=== PATIENT | male | born 1935 | race Caucasian/White ===

== ENCOUNTER 2016-04-04 07:01 | Day surgery (SDC) | payer OTHER ==
[2016-03-25 08:26] VITALS: BMI 16.0
--- NOTE | 2016-03-25 09:15 | PAT Medication Instructions ---
Service Date Mar 25, 2016. Current Home Medication List Ascorbic Acid (Ascorbic Acid), 1 TAB PO QPM Aspirin (Aspirin Chewable), 81 MG PO QAM Atenolol (Tenormin), 25 MG PO QAM Biotin (Biotin), 1 TAB PO QPM Cinnamon (Cinnamon), 1 CAP PO QPM PRN for PRN Coenzyme Q10 (Ubidecarenone) (Coq-10), 1 CAP PO QPM Cyanocobalamin (Vitamin B12 500MCG), 500 MCG PO QPM Ferrous Sulfate (Kp Ferrous Sulfate), 1 TAB PO QPM Fish Oil (Blackshear-3), 1 CAP PO QPM Lisinopril (Zestril), 20 MG PO QPM Nitroglycerin (Nitrostat), 0.4 MG UT PRN PRN for Chest Pain Omeprazole (Prilosec), 20 MG PO QAM Probiotic Product (Probiotic), 1 TAB PO QPM Pyridoxine (Vitamin B6), 100 MG PO QPM Ranitidine (Zantac), 150 MG PO QAM Selenium (Selenicaps-200), 1 CAP PO QPM Simvastatin (Zocor), 5 MG PO QPM Sucralfate (Carafate), 1 GM PO BID Tamsulosin Hcl (Flomax), 1 CAP PO QPM Vitamin E (E-400), 400 UNITS PO QPM Medication Instructions For Your Scheduled Surgery - Check with surgeon/cardiology for instructions: Aspirin (Aspirin Chewable), 81 MG PO QAM - Hold the following medications starting 03/26/16: Cinnamon (Cinnamon), 1 CAP PO QPM PRN for PRN Coenzyme Q10 (Ubidecarenone) (Coq-10), 1 CAP PO QPM Fish Oil (Blackshear-3), 1 CAP PO QPM Vitamin E (E-400), 400 UNITS PO QPM - Hold the following medications the morning of surgery: Ranitidine (Zantac), 150 MG PO QAM Pyridoxine (Vitamin B6), 100 MG PO QPM Sucralfate (Carafate), 1 GM PO BID - Take the following medications the morning of surgery with a sip of water: Atenolol (Tenormin), 25 MG PO QAM Omeprazole (Prilosec), 20 MG PO QAM Nitroglycerin (Nitrostat), 0.4 MG UT PRN PRN for Chest Pain (if needed) - Hold the following medications as scheduled the night before surgery: Lisinopril (Zestril), 20 MG PO QPM - Take the following medications as scheduled the night before surgery: Ascorbic Acid (Ascorbic Acid), 1 TAB PO QPM Pyridoxine (Vitamin B6), 100 MG PO QPM Sucralfate (Carafate), 1 GM PO BID Tamsulosin Hcl (Flomax), 1 CAP PO QPM Simvastatin (Zocor), 5 MG PO QPM Selenium (Selenicaps-200), 1 CAP PO QPM Probiotic Product (Probiotic), 1 TAB PO QPM Nitroglycerin (Nitrostat), 0.4 MG UT PRN PRN for Chest Pain (if needed) Cyanocobalamin (Vitamin B12 500MCG), 500 MCG PO QPM Ferrous Sulfate (Kp Ferrous Sulfate), 1 TAB PO QPM Biotin (Biotin), 1 TAB PO QPM If you have any questions please call us at [phone] (Duyen Moreno PA-C) or [phone] or [phone]
[2016-03-25 09:38] LABS: BASO % 0.3 %; BASO ABS # 0.02 K/uL (0-0.2); COMPLETE YES; EOS % 0.4 %; HEMATOCRIT 36.9 % (42-52); IG% 0.3 %; LYMPH % 10.2 %; LYMPH ABS # 0.74 K/uL (1.2-3.4); MEAN CELL VOLUME 87.4 fL (80-100); MEAN CORPUSCULAR HEMOGLOBIN 29.4 pg (25-34); MEAN CORPUSCULAR HGB CONC 33.6 g/dl (32-36); MEAN PLATELET VOLUME 9.1 fL (7.4-10.4); MONO % 9.7 %; NEUT % 79.1 %; PLATELET COUNT 175 K/uL (130-400); RED BLOOD COUNT 4.22 M/uL (4.7-6.1); WHITE BLOOD COUNT 7.25 K/uL (4.8-10.8)
[2016-03-25 10:08] LABS: BUN/CREATININE RATIO 30.5 (10-20); CALCIUM 8.6 mg/dl (8.5-10.1); CREATININE 1.1 mg/dl (0.60-1.40); POTASSIUM 3.6 mmol/L (3.5-5.1)
[~2016-04-04] VITALS: Ht 175.3 cm; Wt 51.5 kg
[~2016-04-04 07:01] MED LIST: ASCO100061 PO; ASPCH81X PO; ATEN50TA8 PO; BIOT1TAB5 PO; CINN1CAP2 PO; CLINDAMYCIN 600 MG/54 ML D5W IV SCH; COEN50CA9 PO; CYAN500T13 PO; FERR1TAB13 PO; LACTATED RINGER'S 1000ML 1,000 ML IV SCH; LACTATED RINGER'S 1000ML 500 ML IV ONE; LISI-725 PO; MISCCAP80 PO; NTRGSL/4 UT; OMEG10007 PO; OMEP20CA59 PO; PYRI100T4 PO; SELE200C4 PO; SIMV5TAB2 PO; SUCR1TAB29 PO; TAMS0.4C38 PO; VITACAP37 PO; ZNTT/150 PO
[2016-04-04 07:35] VITALS: BP 187/83; PULSE 59; TEMP 36.6; O2SAT 97; Ht 175.3 cm; Wt 51.5 kg
[2016-04-04] MEDS ORDERED: MIDAZOLAM HCL 1 MG/ML 2ML VIAL ONE (07:58)
[2016-04-04] MEDS ORDERED: FENTANYL CITRATE INJ 50 MCG/1 ML 2 ML VIAL ONE ×2 (07:58)
[2016-04-04] MEDS ORDERED: EpHEDrine SULFATE INJ 50 MG/ML AMP IV PRN (08:30)
[2016-04-04] MEDS ORDERED: ONDANSETRON INJ 2 MG/ML 2 ML VIAL IV PRN ×2 (08:30→10:15)
[2016-04-04] MEDS ORDERED: FENTANYL CITRATE INJ 50 MCG/1 ML 2 ML VIAL IV PRN (08:30)
[2016-04-04] MEDS ORDERED: ATROPINE SULFATE 0.1 MG/ML 5ML SYR IV PRN (08:30)
--- NOTE | 2016-04-04 08:31 | History & Physical Bridge Note ---
H&P Re-Evaluation Bridge Note: I have examined the patient, reviewed the History & Physical and in the interval since the performance of the History & Physical I have noted the following changes of clinical significance: No changes noted
[2016-04-04] MEDS ORDERED: EpHEDrine SULFATE INJ 50 MG/ML AMP ONE (09:01)
[2016-04-04] MEDS ORDERED: NEOSTIGMINE METHYLSULFATE 5 MG/5 ML SYR ONE (09:01)
[2016-04-04] MEDS ORDERED: DEXAMETHASONE SOD INJ 4 MG/ML VIAL ONE (09:01)
[2016-04-04] MEDS ORDERED: LIDOCAINE HCL 2% 2 ML VIAL (20MG/ML) ONE (09:01)
[2016-04-04] MEDS ORDERED: ONDANSETRON INJ 2 MG/ML 2 ML VIAL ONE (09:01)
[2016-04-04] MEDS ORDERED: LARYING-O-JET KIT (LTA) EXT ONE ×2 (09:01)
[2016-04-04] MEDS ORDERED: PROPOFOL IV EMULSION 10 MG/ML 20 ML VIAL IV ONE (09:01)
[2016-04-04] MEDS ORDERED: GLYCOPYRROLATE INJ 0.2 MG/ML VIAL ONE (09:01)
[2016-04-04] MEDS ORDERED: BUPIVACAINE 0.5 % 5 MG/1 ML MPF 30ML VIAL INJ ONE (09:46)
[2016-04-04] MEDS ORDERED: SODIUM CHLORIDE 0.9% 1000ML 1,000 ML IV SCH (10:02)
--- NOTE | 2016-04-04 10:02 | [facility] Post Operative Brief Note ---
Immediate Operative Summary Operative Date Apr 04, 2016. Pre-Operative Diagnosis Gallbladder polyps Post-Operative Diagnosis gallbladder polyps Procedure(s) Performed laproscopic cholecystectomy Surgeon Dr. Lim In[employer] Surgeon(s) None Estimated Blood Loss 5 ml Specimens A. gallbladder Drains None Anesthesia General Complication(s) None Disposition Recovery Room / PACU
--- NOTE | 2016-04-04 10:06 | Discharge Instructions ---
Discharge Instructions Admission Reason for Admission: Gallbladder Polyp Discharge Discharge Diagnosis / Problem: Same Discharge Goals Goal(s): Improve disease control Activity Recommendations Activity Limitations: per Instructions/Follow-up section Lifting Limitations: no more than 10 pounds Shower/Bathe: tomorrow (Shower only) . Instructions / Follow-Up Instructions / Follow-Up Post-Surgical ~ Discharge Instructions Activity Recommendations: - lifting limitation: (10 pounds for 2 weeks), - exercise/sex/sports limit: (nonstrenuous for 2 weeks), - driving or machine use limit: (none for 1 week), - Shower/bathe limit: (may shower beginning tomorrow) Diet: - Resume previous diet SPECIAL CARE INSTRUCTIONS: - May shower in 24 hours. Let water run over area and pat dry. - Leave steri strips on for one week. - Call the surgeon's office with any questions or concerns - - (ex. temperature higher than 101 degrees F, excessive bleeding or pain). MEDICATIONS: - Resume previous medications unless instructed otherwise by your surgeon. - Ibuprofen 600 mg every 6 hours with food - Percocet 1 every 4 hours, as needed for pain FOLLOW UP VISIT: - If not already scheduled, please call the office to schedule a two week follow-up appointment. Office number Current Hospital Diet Patient's current hospital diet: Discharge Diet Recommended Diet: Regular Diet Procedures Procedures Performed: laproscopic cholecystectomy Pending Studies Studies pending at discharge: no Medical Emergencies . Who to Call and When: Medical Emergencies: If at any time you feel your situation is an emergency, please call 911 immediately. . Non-Emergent Contact Non-Emergency issues call your: Primary Care Provider, Surgeon Call Non-Emergent contact if: your pain is worsening, wound has increased redness, wound has increased pain . "Provider Documentation" section prepared by Mj Lim. VTE Core Measure Inpt VTE Proph given/why not?: Treatment not indicated
[2016-04-04] MEDS ORDERED: MoRPHine SULFATE 4 MG/ML 1 ML CARP\\VIAL IV PRN (10:15)
[2016-04-04] MEDS ORDERED: OXYCODONE/ACETAMINOPHEN 5-325 TAB PO PRN (10:15)
[2016-04-04 10:35] VITALS: BP 165/73; PULSE 58; TEMP 36.4; O2SAT 100
--- NOTE | 2016-04-04 11:02 | OPERATIVE REPORT ---
DATE OF OPERATION: 04/04/2016 PREOPERATIVE DIAGNOSIS: Gallbladder polyps. POSTOPERATIVE DIAGNOSIS: Same. PROCEDURE: Laparoscopic cholecystectomy. SURGEON: Dr. Lim. FINDINGS: The gallbladder was not dilated. The cystic duct was not dilated. The liver appeared of normal size and contour but was pale in color. The visible bowel appeared normal. There were no adhesions to the gallbladder. TECHNIQUE: The patient was given a general anesthetic, and the area was prepped and draped in usual sterile fashion. Transverse incision was made below the umbilicus, carried down through the subcutaneous tissue to the fascia which was grasped with 2 Sendy clamps and incised between. The peritoneum was identified, incised, and the introducer was placed bluntly. The abdomen was then insufflated to a pressure of 15 mmHg with carbon dioxide. The upper midline, midclavicular and anterior axillary introducers were placed under direct vision through small skin incisions. Traction was placed on the gallbladder and the peritoneum was opened on the lateral side, and then working from lateral to medial, the triangle of Calot was opened and the peritoneum was peeled toward the common bile duct. The infundibulum was dissected away from the liver on lateral and medial sides, allowing for better mobilization. I was then able to peel additional thickened lymphatics and some connective tissue inferiorly. There was a vessel on the lateral side behind the cystic duct that was isolated, clipped and divided, allowing for even better mobility. There was some additional either a large lymphatic or a branch of the artery on the medial side of the cystic duct, that was away and clamped proximally, distally and divided. That allowed me to confirm the location of the cystic duct--gallbladder junction. Three clips were placed on the proximal cystic duct, 1 near the gallbladder junction, and it was divided. The gallbladder was then peeled off the liver bed. There was 1 additional either vascular structure that was small or a lymphatic that was clipped and divided during that dissection. The gallbladder was placed into an Endobag and brought out through the upper midline incision. That introducer was replaced. The liver edge was elevated. There was 1 small area of oozing from the gallbladder bed of the liver that was easily controlled with cautery. The subdiaphragmatic and subhepatic spaces were irrigated, the irrigation was removed. The gallbladder bed of the liver was again inspected and there was no bleeding. The gas was allowed to escape and the introducers were removed. The fascia of the umbilical and upper midline introducer sites was closed with interrupted 0 Vicryl and the skin of all the incisions was closed with 4-0 Monocryl in either an interrupted or running subcuticular fashion. Skin was anesthetized with 0.5% Marcaine. The skin was cleansed, dried, benzoin placed, Steri-Strips applied. The estimated blood loss was 5 mL. Sponge, needle and instrument counts were correct prior to closure. The patient tolerated the surgical procedure and was transferred to recovery. I attest to the content of the Intraoperative Record and any orders documented therein. Any exceptio ns are noted below.
[2016-04-04 11:05] VITALS: BP 137/74; PULSE 58; O2SAT 98
[2016-04-04 11:35] VITALS: BP 161/86; PULSE 56; TEMP 36.6; O2SAT 99
--- NOTE | 2016-04-04 13:16 | Anesthesiology Progress Note ---
Anesthesia Post Op Note Date & Time Apr 04, 2016 at 13:15 Vital Signs Vital Signs Past 12 Hours Date Time Temp Pulse Resp B/P Pulse Ox O2 Delivery O2 Flow Rate FiO2 04/04/16 11:35 36.6 56 18 161/86 99 Room Air 04/04/16 11:05 58 20 137/74 98 Room Air 04/04/16 10:35 36.4 58 20 165/73 100 Room Air 04/04/16 10:25 36.2 52 18 155/66 100 Nasal Cannula 2 04/04/16 10:15 52 18 160/71 100 Mask 10 04/04/16 10:05 57 16 162/77 100 Mask 10 04/04/16 09:55 59 16 146/68 100 Mask 10 04/04/16 09:53 36.0 62 16 154/70 100 Mask 10 04/04/16 07:35 36.6 59 22 187/83 97 Room Air Notes Mental Status: alert / awake / arousable, participated in evaluation Pt Amnestic to Procedure: Yes Nausea / Vomiting: adequately controlled Pain: adequately controlled Airway Patency, RR, SpO2: stable & adequate BP & HR: stable & adequate Hydration State: stable & adequate Anesthetic Complications: no major complications apparent
== END 2016-04-04 12:08 | disposition home or self-care (01) ==
LOC: C.ACU 07:01
PROVIDERS: ATTEND Surgery
DX: K81.1 Chronic cholecystitis (principal); J44.9 Chronic obstructive pulmonary disease, unspecified; Z79.899 Other long term (current) drug therapy; F17.220 Nicotine dependence, chewing tobacco, uncomplicated

== ENCOUNTER → 2017-02-28 | Day surgery (SDC) | payer OTHER ==
[2017-02-23 13:26] VITALS: Ht 174 cm; Wt 51.4 kg
[~2017-02-28] VITALS: Ht 174 cm; Wt 51.4 kg
[~2017-02-28] MED LIST changes: -CINN1CAP2 PO; -CLINDAMYCIN 600 MG/54 ML D5W IV SCH; -FERR1TAB13 PO; +FERR50TA3; -LACTATED RINGER'S 1000ML 1,000 ML IV SCH; -LACTATED RINGER'S 1000ML 500 ML IV ONE; +LIDOCAINE HCL 2% 2 ML VIAL (20MG/ML) ONE; +MIDAZOLAM HCL 1 MG/ML 2ML VIAL ONE; -OMEG10007 PO; +ONDANSETRON INJ 2 MG/ML 2 ML VIAL IV PRN; +ONDANSETRON INJ 2 MG/ML 2 ML VIAL ONE; +PRED20TA PO; +PROPOFOL IV EMULSION 10 MG/ML 20 ML VIAL IV ONE; -SIMV5TAB2 PO; +SULF800T23 PO
--- NOTE | 2017-02-28 11:05 | Endo History and Physical ---
History & Physical Date of Service: Feb 28, 2017. Chief Complaint: Difficulty swallowing Referring Physician: History of Present Illness 81-year-old male with a history of reflux presenting for difficulty swallowing worsening over the past 3-4 months. 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 Past Surgical History Hx Cardiac Surgery: Yes (HEART CATH, STENT X1) Hx Internal Defibrillator: No Hx Pacemaker: No Hx Abdominal Surgery: Yes (OMAR) Hx of Implantable Prosthesis: No Hx Post-Op Nausea and Vomiting: No Hx Cancer Surgery: No Hx Thoracic Surgery: No Hx Orthopedic: Yes (LUMBAR DISCECTOMY, CERVICAL DISCECTOMY (FULL ROM)) Hx Urinary Tract Surgery: No Family History None Social History Smoking Status: Former Smoker Hx Substance Use: No Hx Alcohol Use: No Allergies Coded Allergies: Penicillins (Verified Allergy, Intermediate, hives, 02/23/17) Solifenacin (Verified Allergy, Unknown, NOSEBLEEDS, 02/23/17) Current Medications Reported Home Medications Medications Dose Route/Sig Max Daily Dose Days Date Category Dose Instructions Carafate (Sucralfate) 1 Gm Tab 1 Gm PO BID 02/23/17 Reported Bactrim Ds 800MG/160MG (Trimethoprim/Sulfamethoxazole) Tab 1 Tab PO BID 02/23/17 Reported WILL COMPLETE 02-28-17 Prednisone 20 Mg Tab 0 PO DAILY 02/23/17 Reported 3 TABS DAILY FOR DAYS, THEN 2 TABS DAILY FOR DAYS, THEN 1 TAB DAILY FOR DAYS. Zantac (Ranitidine HCl) 150 Mg Tab 150 Mg PO BID 02/23/17 Reported Probiotic (Probiotic Product) 1 Cap Cap 1 Tab PO QPM 03/25/16 Reported E-400 (Vitamin E) 400 Unit Cap 400 Units PO QPM 03/25/16 Reported Vitamin B12 500MCG (Cyanocobalamin) 500 Mcg Tab 500 Mcg PO QPM 03/25/16 Reported Ascorbic Acid 1,000 Mg Tab 1 Tab PO QPM 12/31/15 Reported Nitrostat (Nitroglycerin) 0.4 Mg Tab 0.4 Mg UT PRN PRN 12/31/15 Reported Vitamin B6 (Pyridoxine HCl) 100 Mg Tab 100 Mg PO QPM 12/31/15 Reported Biotin 1,000 Mcg Tab 1 Tab PO QPM 12/31/15 Reported Selenicaps-200 (Selenium) 200 Mcg Cap 1 Cap PO QPM 12/31/15 Reported Coq-10 (Coenzyme Q10 (Ubidecarenone)) 50 Mg Cap 1 Cap PO QPM 12/31/15 Reported Zestril (Lisinopril) 20 Mg Tab 20 Mg PO QPM 12/31/15 Reported Flomax (Tamsulosin Hcl) 0.4 Mg Cap 1 Cap PO QPM 12/31/15 Reported Tenormin (Atenolol) 50 Mg Tab 50 Mg PO QAM 12/31/15 Reported Prilosec (Omeprazole) 20 Mg Capcr 20 Mg PO QAM 12/31/15 Reported Aspirin Chewable (Aspirin) 81 Mg Chew 81 Mg PO QAM 12/31/15 Reported Vital Signs Weight (Kilograms): 51.36 Height (Feet): 5 Height (Inches): 8.5 Physical Exam General Appearance: no apparent distress Respiratory/Chest: Auscultation: deminished air movement Cardiovascular: Heart Auscultation: II/ GOPI Abdomen: Inspection & Palpation: soft Assessment and Plan Upper endoscopy for evaluation of difficulty swallowing. We've discussed the risks to include bleeding, infection, perforation and pain.
--- NOTE | 2017-02-28 12:37 | Discharge Instructions ---
Endoscopy Patient Instructions Date / Procedure(s) Performed Feb 28, 2017. EGD Allergy Information Coded Allergies: Penicillins (Verified Allergy, Intermediate, hives, 02/23/17) Solifenacin (Verified Allergy, Unknown, NOSEBLEEDS, 02/23/17) Discharge Date / Findings Feb 28, 2017. No duodenal polyps seen today Diffuse gastritis Medication Instructions Restart Stopped Medication(s): Reported Home Medications Medications Dose Route/Sig Max Daily Dose Days Date Category Dose Instructions Iron (Ferrous Sulfate) (Ferrous Sulfate) 50 Mg Tab 65 Mg 02/28/17 Reported Carafate (Sucralfate) 1 Gm Tab 1 Gm PO BID 02/23/17 Reported Bactrim Ds 800MG/160MG (Trimethoprim/Sulfamethoxazole) Tab 1 Tab PO BID 02/23/17 Reported WILL COMPLETE 02-28-17 Prednisone 20 Mg Tab 0 PO DAILY 02/23/17 Reported 3 TABS DAILY FOR DAYS, THEN 2 TABS DAILY FOR DAYS, THEN 1 TAB DAILY FOR DAYS. Zantac (Ranitidine HCl) 150 Mg Tab 150 Mg PO BID 02/23/17 Reported Probiotic (Probiotic Product) 1 Cap Cap 1 Tab PO QPM 03/25/16 Reported E-400 (Vitamin E) 400 Unit Cap 400 Units PO QPM 03/25/16 Reported Vitamin B12 500MCG (Cyanocobalamin) 500 Mcg Tab 500 Mcg PO QPM 03/25/16 Reported Ascorbic Acid 1,000 Mg Tab 1 Tab PO QPM 12/31/15 Reported Nitrostat (Nitroglycerin) 0.4 Mg Tab 0.4 Mg UT PRN PRN 12/31/15 Reported Vitamin B6 (Pyridoxine HCl) 100 Mg Tab 100 Mg PO QPM 12/31/15 Reported Biotin 1,000 Mcg Tab 1 Tab PO QPM 12/31/15 Reported Selenicaps-200 (Selenium) 200 Mcg Cap 1 Cap PO QPM 12/31/15 Reported Coq-10 (Coenzyme Q10 (Ubidecarenone)) 50 Mg Cap 1 Cap PO QPM 12/31/15 Reported Zestril (Lisinopril) 20 Mg Tab 20 Mg PO QPM 12/31/15 Reported Flomax (Tamsulosin Hcl) 0.4 Mg Cap 1 Cap PO QPM 12/31/15 Reported Tenormin (Atenolol) 50 Mg Tab 50 Mg PO QAM 12/31/15 Reported Prilosec (Omeprazole) 20 Mg Capcr 20 Mg PO QAM 12/31/15 Reported Aspirin Chewable (Aspirin) 81 Mg Chew 81 Mg PO QAM 12/31/15 Reported Provider Instructions Activity Restrictions - No exercising or heavy lifting for 24 hours. - Do not drink alcohol the day of the procedure. - Do not drive a car or operate machinery until the day after the procedure. - Do not make any important decisions or sign important papers in 24 hours after the procedure. Following Day: - Return to full activity which may include returning to work/school. Diet Start your diet with liquids and light foods (jello, soup, juice, toast). Then eat your usual diet if not nauseated. Treatment For Common After Affects For mild abdominal pain, bloating, or excessive gas: - Rest - Eat lightly - Lie on right side Follow-Up Information Follow-up with Dr. Elizabeth Sheth as scheduled Await pathology results Surveillance upper endoscopy in 1 year for follow-up of the duodenal polyps Anesthesia Information What You Should Know You have had a procedure that required some medicine to reduce anxiety and discomfort. This treatment is called moderate sedation. After receiving the treatment, you may be sleepy, but you will be able to breathe on your own. The effects of the treatment may last for several hours. Follow these instructions along with Activity/Diet recommendations noted above: * Do NOT do anything where dizziness or clumsiness would be dangerous. * Rest quietly at home today, then you can be up and about tomorrow. * Have a responsible person stay with you the rest of today. * You may have had an I.V. today. If so, you may take the dressing off later today. Recommendations Call your doctor if: * Trouble breathing * Continuous vomiting for more than 24 hours * Temperature above 101 degrees * Severe abdominal pain or bloating * Pain not relieved by pain medicine ordered * There is increased drainage or redness from any incision * A large amount of rectal bleeding greater than 2-3 tablespoons. (If you had a polyp/s removed or have hemorrhoids, a small amount of blood - from the rectum is to be expected.) * You have any unanswered questions or concerns. IN THE EVENT OF A SERIOUS EMERGENCY, GO TO THE NEAREST EMERGENCY ROOM Your discharge instructions were prepared by provider Cl Barnes. Patient Instructions Signature Page Adriano Gay Patient (or Guardian) Signature/Date: I have read and understand the instructions given to me by my caregivers. Caregiver/RN/Doctor Signature/Date: The above-named patient and/or guardian has received patient instructions on this date. + Original Patient Signature Page (only) stays with chart. Please make copy for patient.
--- NOTE | 2017-02-28 12:40 | GI REPORT ---
Procedure Date: 02/28/2017 11:19 AM Procedure: Upper GI endoscopy Indications: Dysphagia, Follow-up of benign duodenal tumor Medicines: Monitored Anesthesia Care Complications: No immediate complications. Estimated blood loss: Minimal. Estimated Blood Loss: Estimated blood loss was minimal. Procedure: Pre-Anesthesia Assessment: - Prior to the procedure, a History and Physical was performed, and patient medications, allergies and sensitivities were reviewed. The patient's tolerance of previous anesthesia was reviewed. - The risks and benefits of the procedure and the sedation options and risks were discussed with the patient. All questions were answered and informed consent was obtained. - Patient identification and proposed procedure were verified prior to the procedure by the physician, the nurse and the aluminum welder. The procedure was verified in the procedure room. - Pre-procedure physical examination revealed no contraindications to sedation. - ASA Grade Assessment: III - A patient with severe systemic disease. - After reviewing the risks and benefits, the patient was deemed in satisfactory condition to undergo the procedure. - The anesthesia plan was to use monitored anesthesia care (MAC). - Immediately prior to administration of medications, the patient was re-assessed for adequacy to receive sedatives. - The heart rate, respiratory rate, oxygen saturations, blood pressure, adequacy of pulmonary ventilation, and response to care were monitored throughout the procedure. - The physical status of the patient was re-assessed after the procedure. After obtaining informed consent, the endoscope was passed under direct vision. Throughout the procedure, the patient's blood pressure, pulse, and oxygen saturations were monitored continuously. The scope was introduced through the mouth, and advanced to the third part of duodenum. The upper GI endoscopy was accomplished without difficulty. The patient tolerated the procedure well. Findings: No endoscopic abnormality was evident in the esophagus to explain the patient's complaint of dysphagia. It was decided, however, to proceed with dilation of the entire esophagus. A guidewire was placed and the scope was withdrawn. Dilation was performed with a Savary dilator with no resistance at 54 Fr. The endoscope was then reinserted to evaluate the success of the procedure. Estimated blood loss: none. The Z-line was regular and was found 39 cm from the incisors. Diffuse moderate inflammation characterized by congestion (edema), erythema and granularity was found in the entire examined stomach. Biopsies were taken with a cold forceps for histology. Estimated blood loss was minimal. The examined duodenum was normal. Impression: - No endoscopic esophageal abnormality to explain patient's dysphagia. Esophagus dilated. Dilated. - Z-line regular, 39 cm from the incisors. - Gastritis. Biopsied. - Normal examined duodenum. Recommendation: - Discharge patient to home (ambulatory). - Advance diet as tolerated today. - Repeat the upper endoscopy in 1 TO 1.5 years for surveillance. Cl Barnes D.O. Cl Barnes, 02/28/2017 12:40:23 PM This report has been signed electronically. Note Initiated On: 02/28/2017 11:19 AM I attest to the content of the Intraoperative Record and orders documented therein, exceptions below
[2017-02-28 13:13] VITALS: BP 163/84; PULSE 62; O2SAT 98
--- NOTE | 2017-02-28 13:26 | Anesthesiology Progress Note ---
Anesthesia Post Op Note Date & Time Feb 28, 2017 at 13:26 Vital Signs Pain Intensity: 0 Vital Signs Past 12 Hours Date Time Temp Pulse Resp B/P (MAP) Pulse Ox O2 Delivery O2 Flow Rate FiO2 02/28/17 13:13 62 20 163/84 (110) 98 Room Air 02/28/17 12:58 61 20 126/62 (83) 98 Room Air 02/28/17 12:43 57 24 107/55 (72) 99 Room Air 02/28/17 11:26 36.7 65 18 160/83 (108) 98 Room Air Notes Mental Status: alert / awake / arousable, participated in evaluation Pt Amnestic to Procedure: Yes Nausea / Vomiting: adequately controlled Pain: adequately controlled Airway Patency, RR, SpO2: stable & adequate BP & HR: stable & adequate Hydration State: stable & adequate Anesthetic Complications: no major complications apparent
== END | disposition home or self-care (01) ==
LOC: C.GI 10:41
PROVIDERS: ATTEND Internal Medicine Gastroenterology
DX: R13.10 Dysphagia, unspecified (principal); K29.50 Unspecified chronic gastritis without bleeding; Z87.891 Personal history of nicotine dependence; Z79.82 Long term (current) use of aspirin; Z79.899 Other long term (current) drug therapy